=== PATIENT | male | born 1950 | race African-American/Black ===

== ENCOUNTER 2022-01-26 10:45 | Inpatient (IN) | payer OTHER ==
[2022-01-26 11:34] VITALS: BMI 34.0
[2022-01-26] MEDS ORDERED: MAGNESIUM HYDROX 2400MG/30ML ORAL SUSPENSION 30 ML CUP PO PRN (11:34)
[2022-01-26] MEDS ORDERED: LORazepam 1 MG TABLET PO PRN (11:34)
[2022-01-26] MEDS ORDERED: ONDANSETRON *ODT* 4 MG TABLET SL PRN (11:34)
[2022-01-26] MEDS ORDERED: LOPERAMIDE HCL 2 MG CAPSULE PO PRN (11:34)
[2022-01-26] MEDS ORDERED: MAG HYDROX/AL HYDROX/SIMETH 30 ML UNIT-DOSE CUP PO PRN (11:34)
[2022-01-26] MEDS ORDERED: NALOXONE HCL (KLOXXADO) 8 MG SPRAY NS PRN (11:34)
[2022-01-26] MEDS ORDERED: BENZOCAINE/MENTHOL (CHLORASEPTIC ) LOZENGE MM PRN (11:34)
[2022-01-26] MEDS ORDERED: BISMUTH SUBSALICYLATE 524 MG/30 ML PO PRN (11:34)
[2022-01-26] MEDS ORDERED: MAGNESIUM CITRATE 300 ML BOTTLE PO PRN (11:34)
[2022-01-26] MEDS ORDERED: ACETAMINOPHEN 325 MG TABLET (FP) PO PRN ×2 (11:34)
[2022-01-26] MEDS ORDERED: DICYCLOMINE HCL 10 MG CAPSULE PO PRN (11:34)
[2022-01-26] MEDS ORDERED: IBUPROFEN 400 MG TABLET (FP) PO PRN (11:34)
[2022-01-26] MEDS ORDERED: LORazepam 2 MG TABLET ONE (11:51)
[2022-01-26] MEDS: LORazepam 2 MG TABLET PO SCH ×4 (12:02→22:36)
[2022-01-26] MEDS: METHOCARBAMOL 500 MG TABLET PO PRN (12:42)
[2022-01-26] MEDS: hydrOXYzine PAMOATE 25 MG CAPSULE (FP) PO PRN (12:42)
[2022-01-26] MEDS: PRENATAL VITAMINS W/ FOLIC ACID TABLET (FP) PO SCH (12:52)
[2022-01-26] MEDS: NIFEdipine E.R 60 MG TABLET PO SCH (13:54)
[2022-01-26 15:35] LABS: HEMATOCRIT 42.2 % (35.4-49); HEMOGLOBIN 13.9 GM/dL (11.7-16.9); MCH 31.3 pg (25.7-33.7); MEAN PLT VOLUME 7.6 fl (7.5-11.1); PLATELET COUNT 223 10^3/uL (134-434); RBC 4.44 M/mm3 (4.00-5.60); RDW 14.6 % (11.9-15.9); WHITE BLOOD COUNT 5.5 K/mm3 (4.0-10.0)
[2022-01-26 15:41] LABS: ALBUMIN 3.4 g/dl (3.4-5.0); BLOOD UREA NITROGEN 5.9 mg/dL (7-18)
[2022-01-26 15:44] LABS: CREATININE 1.1 mg/dL (0.55-1.3)
[2022-01-26 15:46] LABS: BILIRUBIN,TOTAL 0.7 mg/dL (0.2-1); TOT PROT 7.4 g/dl (6.4-8.2)
[2022-01-26] MEDS: MELATONIN 5 MG TABLETS PO SCH (22:37)
[2022-01-26] MEDS: THIAMINE HCL 100 MG TABLET (FP) PO SCH (22:37)
[2022-01-27] MEDS: LORazepam 2 MG TABLET PO SCH ×4 (05:55→22:36)
[2022-01-27] MEDS: PRENATAL VITAMINS W/ FOLIC ACID TABLET (FP) PO SCH (10:38)
[2022-01-27] MEDS: NIFEdipine E.R 60 MG TABLET PO SCH (10:38)
[2022-01-27] MEDS: LACTULOSE 20 GM/30 ML UDC (FOR ORAL USE ONLY) PO SCH ×3 (14:13→22:35)
[2022-01-27] MEDS: THIAMINE HCL 100 MG TABLET (FP) PO SCH (22:35)
[2022-01-27] MEDS: MELATONIN 5 MG TABLETS PO SCH (22:35)
[2022-01-28] MEDS: LORazepam 1 MG TABLET PO SCH ×4 (06:00→22:09)
[2022-01-28] MEDS: PRENATAL VITAMINS W/ FOLIC ACID TABLET (FP) PO SCH (10:31)
[2022-01-28] MEDS: NIFEdipine E.R 60 MG TABLET PO SCH (10:31)
[2022-01-28] MEDS: LACTULOSE 20 GM/30 ML UDC (FOR ORAL USE ONLY) PO SCH ×4 (10:32→22:10)
[2022-01-28] MEDS: MELATONIN 5 MG TABLETS PO SCH (22:08)
[2022-01-28] MEDS: hydrOXYzine PAMOATE 25 MG CAPSULE (FP) PO PRN (22:09)
[2022-01-28] MEDS: IBUPROFEN 600 MG TABLET (FP) PO PRN (22:09)
[2022-01-28] MEDS: THIAMINE HCL 100 MG TABLET (FP) PO SCH (22:10)
[2022-01-29] MEDS ORDERED: LORazepam 0.5 MG TABLET PO PRN
[2022-01-29] MEDS: LORazepam 0.5 MG TABLET PO SCH ×4 (06:35→22:06)
[2022-01-29] MEDS: METHOCARBAMOL 500 MG TABLET PO PRN (10:10)
[2022-01-29] MEDS: LACTULOSE 20 GM/30 ML UDC (FOR ORAL USE ONLY) PO SCH ×4 (10:10→22:05)
[2022-01-29] MEDS: PRENATAL VITAMINS W/ FOLIC ACID TABLET (FP) PO SCH (10:10)
[2022-01-29] MEDS: NIFEdipine E.R 60 MG TABLET PO SCH (10:11)
[2022-01-29] MEDS ORDERED: cloNIDine HCL 0.1 MG TABLET PO PRN (10:46)
[2022-01-29] MEDS ORDERED: MELATONIN 5 MG TABLETS PO PRN (12:07)
[2022-01-29] MEDS: THIAMINE HCL 100 MG TABLET (FP) PO SCH (22:05)
[2022-01-29] MEDS: hydrOXYzine PAMOATE 25 MG CAPSULE (FP) PO PRN (22:06)
[2022-01-30] MEDS ORDERED: LORazepam 0.5 MG TABLET PO ONE (05:00)
[2022-01-30] MEDS: IBUPROFEN 600 MG TABLET (FP) PO PRN (05:57)
[2022-01-30] MEDS: PRENATAL VITAMINS W/ FOLIC ACID TABLET (FP) PO SCH (10:18)
[2022-01-30] MEDS: NIFEdipine E.R 60 MG TABLET PO SCH (10:18)
[2022-01-30] MEDS: LACTULOSE 20 GM/30 ML UDC (FOR ORAL USE ONLY) PO SCH ×2 (10:18→14:27)
[2022-01-30 11:21] VITALS: BP 126/79; PULSE 95; RESP 18; TEMP 98.1
== END 2022-01-30 13:27 | disposition home or self-care (01) | DRG 897 ==
LOC: YASAS 10:45 → Y6N 11:45
PROVIDERS: ADMIT Allergy & Immunology; ATTEND Surgery
PROC: HZ2ZZZZ Detoxification Services for Substance Abuse Treatment (ICD-10-PCS; principal; 2022-01-26)
DX: F10.230 Alcohol dependence with withdrawal, uncomplicated (principal); F14.10 Cocaine abuse, uncomplicated; F12.10 Cannabis abuse, uncomplicated; I10 Essential (primary) hypertension; R16.0 Hepatomegaly, not elsewhere classified; R79.89 Other specified abnormal findings of blood chemistry; U09.9 Post COVID-19 condition, unspecified; R26.2 Difficulty in walking, not elsewhere classified; Z86.19 Personal history of other infectious and parasitic diseases
CPT/HCPCS: 36415; 71045-TC-FY; 80053; 82140; 82962; 84450; 85027; 86593; 86780; 87811; 93005; 93010; C9803-CS; U0003; U0005

== ENCOUNTER 2022-06-22 09:53 | Inpatient (IN) | payer OTHER ==
[2022-06-22 10:04] VITALS: BMI 33.2
[2022-06-22] MEDS ORDERED: ONDANSETRON *ODT* 4 MG TABLET SL PRN (10:14)
[2022-06-22] MEDS ORDERED: LORazepam 1 MG TABLET PO PRN (10:14)
[2022-06-22] MEDS ORDERED: MAGNESIUM HYDROX 2400MG/30ML ORAL SUSPENSION 30 ML CUP PO PRN (10:14)
[2022-06-22] MEDS ORDERED: DICYCLOMINE HCL 10 MG CAPSULE PO PRN (10:14)
[2022-06-22] MEDS ORDERED: BISMUTH SUBSALICYLATE 262 MG/15 ML BTL PO PRN (10:14)
[2022-06-22] MEDS ORDERED: POLYETHYLENE GLYCOL (HEALTHYLAX) 3350 17 GM PACKET PO PRN (10:14)
[2022-06-22] MEDS ORDERED: guaiFENesin 600 MG TABLET.ER (FP) PO PRN (10:14)
[2022-06-22] MEDS ORDERED: IBUPROFEN 600 MG TABLET (FP) PO PRN (10:14)
[2022-06-22] MEDS ORDERED: IBUPROFEN 400 MG TABLET (FP) PO PRN (10:14)
[2022-06-22] MEDS ORDERED: MAG HYDROX/AL HYDROX/SIMETH 30 ML UNIT-DOSE CUP PO PRN (10:14)
[2022-06-22] MEDS ORDERED: NALOXONE HCL (KLOXXADO) 8 MG SPRAY NS PRN (10:14)
[2022-06-22] MEDS ORDERED: LOPERAMIDE HCL 2 MG CAPSULE PO PRN (10:14)
[2022-06-22] MEDS ORDERED: BENZOCAINE/MENTHOL (CHLORASEPTIC ) LOZENGE MM PRN (10:14)
[2022-06-22] MEDS ORDERED: ACETAMINOPHEN 325 MG TABLET (FP) PO PRN (10:14)
[2022-06-22] MEDS ORDERED: hydrOXYzine PAMOATE 25 MG CAPSULE (FP) PO PRN (10:14)
[2022-06-22] MEDS ORDERED: BENZONATATE 200 MG CAPSULE PO PRN (10:14)
[2022-06-22] MEDS ORDERED: NALOXONE HCL 0.4 MG/ML VIAL IM PRN (10:14)
[2022-06-22] MEDS ORDERED: METHOCARBAMOL 500 MG TABLET PO PRN (10:14)
[2022-06-22] MEDS ORDERED: LORazepam 2 MG TABLET PO ONE (10:14)
[2022-06-22] MEDS ORDERED: LORazepam 2 MG TABLET ONE (10:57)
[2022-06-22] MEDS: PRENATAL VITAMINS W/ FOLIC ACID TABLET (FP) PO SCH (11:00)
[2022-06-22] MEDS: LORazepam 2 MG TABLET PO SCH ×3 (11:05→22:50)
[2022-06-22 17:21] LABS: HEMATOCRIT 43.2 % (35.4-49); HEMOGLOBIN 14.7 GM/dL (11.7-16.9); MCH 32.2 pg (25.7-33.7); MCHC 34.1 g/dl (32.0-35.9); MEAN CELL VOLUME 94.3 fl (80-96); MEAN PLT VOLUME 7.8 fl (7.5-11.1); PLATELET COUNT 271 10^3/uL (134-434); RBC 4.59 M/mm3 (4.00-5.60); RDW 13.8 % (11.9-15.9); WHITE BLOOD COUNT 5.2 K/mm3 (4.0-10.0)
[2022-06-22 17:39] LABS: CALCIUM 8.8 mg/dL (8.5-10.1)
[2022-06-22 17:40] LABS: ALBUMIN 3.3 g/dl (3.4-5.0); BLOOD UREA NITROGEN 5.1 mg/dL (7-18)
[2022-06-22 17:43] LABS: CREATININE 0.9 mg/dL (0.55-1.3)
[2022-06-22 17:45] LABS: BILIRUBIN,TOTAL 0.8 mg/dL (0.2-1); TOT PROT 7.7 g/dl (6.4-8.2)
[2022-06-22] MEDS: MELATONIN 5 MG TABLETS PO SCH (22:50)
[2022-06-22] MEDS: THIAMINE HCL 100 MG TABLET (FP) PO SCH (22:50)
[2022-06-23] MEDS: LORazepam 2 MG TABLET PO SCH ×4 (05:33→22:28)
[2022-06-23] MEDS: PRENATAL VITAMINS W/ FOLIC ACID TABLET (FP) PO SCH (10:19)
[2022-06-23] MEDS: LACTULOSE 20 GM/30 ML UDC (FOR ORAL USE ONLY) PO SCH ×4 (10:20→22:29)
[2022-06-23] MEDS ORDERED: METOPROLOL TARTRATE 25 MG TABLET (FP) PO ONE (22:02)
[2022-06-23] MEDS: THIAMINE HCL 100 MG TABLET (FP) PO SCH (22:29)
[2022-06-23] MEDS: MELATONIN 5 MG TABLETS PO SCH (22:29)
[2022-06-24] MEDS: LORazepam 1 MG TABLET PO SCH ×4 (05:27→22:51)
[2022-06-24] MEDS: PRENATAL VITAMINS W/ FOLIC ACID TABLET (FP) PO SCH (10:20)
[2022-06-24] MEDS: LACTULOSE 20 GM/30 ML UDC (FOR ORAL USE ONLY) PO SCH ×4 (10:20→22:51)
[2022-06-24 11:21] LABS: CALCIUM 8.7 mg/dL (8.5-10.1)
[2022-06-24 11:22] LABS: ALBUMIN 2.8 g/dl (3.4-5.0); BLOOD UREA NITROGEN 5.8 mg/dL (7-18)
[2022-06-24 11:25] LABS: CREATININE 0.8 mg/dL (0.55-1.3)
[2022-06-24 11:26] LABS: TOT PROT 6.7 g/dl (6.4-8.2)
[2022-06-24 11:27] LABS: BILIRUBIN,TOTAL 0.7 mg/dL (0.2-1)
[2022-06-24] MEDS ORDERED: METOPROLOL TARTRATE 25 MG TABLET (FP) PO ONE ×2 (21:57→23:38)
[2022-06-24] MEDS: MELATONIN 5 MG TABLETS PO SCH (22:46)
[2022-06-24] MEDS: THIAMINE HCL 100 MG TABLET (FP) PO SCH (22:51)
[2022-06-25] MEDS ORDERED: LORazepam 0.5 MG TABLET PO PRN
[2022-06-25] MEDS: LORazepam 0.5 MG TABLET PO SCH ×4 (05:26→22:48)
[2022-06-25] MEDS: PRENATAL VITAMINS W/ FOLIC ACID TABLET (FP) PO SCH (10:20)
[2022-06-25] MEDS: LACTULOSE 20 GM/30 ML UDC (FOR ORAL USE ONLY) PO SCH ×4 (10:21→22:48)
[2022-06-25] MEDS: MELATONIN 5 MG TABLETS PO SCH (22:47)
[2022-06-25] MEDS: THIAMINE HCL 100 MG TABLET (FP) PO SCH (22:47)
[2022-06-26] MEDS ORDERED: LORazepam 0.5 MG TABLET PO ONE (05:00)
[2022-06-26 09:20] VITALS: BP 129/78; PULSE 105; RESP 19; TEMP 96.8
[2022-06-26] MEDS: LACTULOSE 20 GM/30 ML UDC (FOR ORAL USE ONLY) PO SCH (10:45)
[2022-06-26] MEDS: PRENATAL VITAMINS W/ FOLIC ACID TABLET (FP) PO SCH (10:45)
== END 2022-06-26 09:36 | disposition home or self-care (01) | DRG 897 ==
LOC: YASAS 09:53 → Y3N 10:41
PROVIDERS: ADMIT Allergy & Immunology; ATTEND Surgery
PROC: HZ2ZZZZ Detoxification Services for Substance Abuse Treatment (ICD-10-PCS; principal; 2022-06-22)
DX: F10.230 Alcohol dependence with withdrawal, uncomplicated (principal); F14.20 Cocaine dependence, uncomplicated; F19.280 Other psychoactive substance dependence with psychoactive substance-induced anxiety disorder; I10 Essential (primary) hypertension; R79.89 Other specified abnormal findings of blood chemistry; E66.9 Obesity, unspecified; Z68.33 Body mass index [BMI] 33.0-33.9, adult; Z87.19 Personal history of other diseases of the digestive system; Z86.19 Personal history of other infectious and parasitic diseases
CPT/HCPCS: 36415; 80053; 82140; 83036; 85027; 86593; 86780; 87811; C9803-CS; U0003; U0005

== ENCOUNTER 2023-02-12 14:24 | Inpatient (IN) | payer OTHER ==
[2023-02-12 15:26] VITALS: BMI 34.0
[2023-02-12] MEDS ORDERED: P-EPHED 60MG/TRIPROLIDI 2.5MG TABLET PO PRN (17:10)
[2023-02-12] MEDS ORDERED: MAG HYDROX/AL HYDROX/SIMETH 30 ML UNIT-DOSE CUP PO PRN (17:10)
[2023-02-12] MEDS ORDERED: ACETAMINOPHEN 325 MG TABLET (FP) PO PRN (17:10)
[2023-02-12] MEDS ORDERED: LOPERAMIDE HCL 2 MG CAPSULE PO PRN (17:10)
[2023-02-12] MEDS ORDERED: MAGNESIUM HYDROX 2400MG/30ML ORAL SUSPENSION 30 ML CUP PO PRN (17:10)
[2023-02-12] MEDS ORDERED: guaiFENesin 600 MG TABLET.ER (FP) PO PRN (17:10)
[2023-02-12] MEDS ORDERED: ONDANSETRON *ODT* 4 MG TABLET SL PRN (17:10)
[2023-02-12] MEDS ORDERED: IBUPROFEN 400 MG TABLET (FP) PO PRN (17:10)
[2023-02-12] MEDS ORDERED: POLYETHYLENE GLYCOL (HEALTHYLAX) 3350 17 GM PACKET PO PRN (17:10)
[2023-02-12] MEDS ORDERED: BISMUTH SUBSALICYLATE 524 MG/30 ML PO PRN (17:10)
[2023-02-12] MEDS ORDERED: BENZONATATE 200 MG CAPSULE PO PRN (17:10)
[2023-02-12] MEDS ORDERED: BENZOCAINE/MENTHOL (CHLORASEPTIC ) LOZENGE MM PRN (17:10)
[2023-02-12] MEDS ORDERED: diazePAM 5 MG TABLET PO PRN (17:12)
[2023-02-12] MEDS: diazePAM 5 MG TABLET PO SCH ×2 (17:41→22:14)
[2023-02-12] MEDS ORDERED: diazePAM 5 MG TABLET ONE (17:59)
[2023-02-12] MEDS: THIAMINE HCL 100 MG TABLET (FP) PO SCH (22:14)
[2023-02-12] MEDS: MELATONIN 5 MG TABLETS PO SCH (22:14)
[2023-02-13] MEDS: diazePAM 5 MG TABLET PO SCH ×4 (05:18→22:10)
[2023-02-13] MEDS: LISINOPRIL 10 MG TABLET PO SCH (10:22)
[2023-02-13] MEDS: PRENATAL VITAMINS W/ FOLIC ACID TABLET (FP) PO SCH (10:22)
[2023-02-13 10:25] LABS: CHLORIDE 103 mmol/L (98-107); POTASSIUM 3.6 mmol/L (3.5-5.1); SODIUM 136 mmol/L (136-145)
[2023-02-13 10:26] LABS: HEMATOCRIT 42.1 % (35.4-49); HEMOGLOBIN 13.7 GM/dL (11.7-16.9); MCH 31.4 pg (25.7-33.7); MCHC 32.6 g/dl (32.0-35.9); MEAN CELL VOLUME 96.3 fl (80-96); PLATELET COUNT 196 10^3/uL (134-434); RBC 4.38 M/mm3 (4.00-5.60); RDW 14.7 % (11.9-15.9); WHITE BLOOD COUNT 3.9 K/mm3 (4.0-10.0)
[2023-02-13 10:29] LABS: ALBUMIN 3.4 g/dl (3.4-5.0); ANION GAP 4 mmol/L (4-13); BLOOD UREA NITROGEN 10.2 mg/dL (7-18); CALCIUM 8.6 mg/dL (8.5-10.1); CO2 29 mmol/L (21-32); GLUCOSE,RANDOM 135 mg/dL (74-106)
[2023-02-13 10:31] LABS: SGPT/ALT 18 U/L (13-61)
[2023-02-13 10:32] LABS: CREATININE 0.9 mg/dL (0.55-1.3); SGOT/AST 19 U/L (15-37)
[2023-02-13 10:33] LABS: TOT PROT 7.2 g/dl (6.4-8.2)
[2023-02-13 10:34] LABS: ALK PHOS 73 U/L (45-117)
[2023-02-13] MEDS: MELATONIN 5 MG TABLETS PO SCH (22:10)
[2023-02-13] MEDS: THIAMINE HCL 100 MG TABLET (FP) PO SCH (22:10)
[2023-02-14] MEDS: diazePAM 5 MG TABLET PO SCH ×3 (05:20→22:03)
[2023-02-14] MEDS: LISINOPRIL 10 MG TABLET PO SCH (10:06)
[2023-02-14] MEDS: PRENATAL VITAMINS W/ FOLIC ACID TABLET (FP) PO SCH (10:06)
[2023-02-14] MEDS: THIAMINE HCL 100 MG TABLET (FP) PO SCH (22:03)
[2023-02-14] MEDS: MELATONIN 5 MG TABLETS PO SCH (22:04)
[2023-02-15] MEDS: diazePAM 5 MG TABLET PO SCH ×2 (05:20→17:09)
[2023-02-15] MEDS: LISINOPRIL 10 MG TABLET PO SCH (09:46)
[2023-02-15] MEDS: PRENATAL VITAMINS W/ FOLIC ACID TABLET (FP) PO SCH (09:46)
[2023-02-15] MEDS: THIAMINE HCL 100 MG TABLET (FP) PO SCH (22:19)
[2023-02-15] MEDS: MELATONIN 5 MG TABLETS PO SCH (22:19)
[2023-02-16] MEDS ORDERED: diazePAM 5 MG TABLET PO ONE (06:00)
[2023-02-16] MEDS: PRENATAL VITAMINS W/ FOLIC ACID TABLET (FP) PO SCH (10:02)
[2023-02-16] MEDS: LISINOPRIL 10 MG TABLET PO SCH (10:03)
[2023-02-16 13:29] VITALS: TEMP 97.3
[2023-02-16 16:54] VITALS: BP 145/89; PULSE 72; RESP 18
== END 2023-02-16 17:18 | disposition home or self-care (01) | DRG 897 ==
LOC: YASAS 14:24 → Y6N 17:27
PROVIDERS: ADMIT Allergy & Immunology; ATTEND Surgery
PROC: HZ2ZZZZ Detoxification Services for Substance Abuse Treatment (ICD-10-PCS; principal; 2023-02-12)
DX: F10.230 Alcohol dependence with withdrawal, uncomplicated (principal); F14.10 Cocaine abuse, uncomplicated; I10 Essential (primary) hypertension; E11.9 Type 2 diabetes mellitus without complications; Z79.84 Long term (current) use of oral hypoglycemic drugs; M15.9 Polyosteoarthritis, unspecified; E66.9 Obesity, unspecified; Z68.34 Body mass index [BMI] 34.0-34.9, adult; R76.11 Nonspecific reaction to tuberculin skin test without active tuberculosis; Z86.19 Personal history of other infectious and parasitic diseases
CPT/HCPCS: 36415; 71046-TC-FY; 80053; 80307; 82962; 85027; 86593; 86780; 87635; 87811

== ENCOUNTER 2023-11-19 14:07 | Inpatient (IN) | payer OTHER ==
[2023-11-19 15:30] VITALS: BMI 34.7
[2023-11-19] MEDS ORDERED: diazePAM 5 MG TABLET PO PRN (15:37)
[2023-11-19] MEDS ORDERED: guaiFENesin 600 MG TABLET.ER (FP) PO PRN (15:41)
[2023-11-19] MEDS ORDERED: MAG HYDROX/AL HYDROX/SIMETH 30 ML UNIT-DOSE CUP PO PRN (15:41)
[2023-11-19] MEDS ORDERED: BISMUTH SUBSALICYLATE 524 MG/30 ML PO PRN (15:41)
[2023-11-19] MEDS ORDERED: ACETAMINOPHEN 325 MG TABLET (FP) PO PRN (15:41)
[2023-11-19] MEDS ORDERED: MAGNESIUM HYDROX 2400MG/30ML ORAL SUSPENSION 30 ML CUP PO PRN (15:41)
[2023-11-19] MEDS ORDERED: IBUPROFEN 400 MG TABLET (FP) PO PRN (15:41)
[2023-11-19] MEDS ORDERED: ONDANSETRON *ODT* 4 MG TABLET SL PRN (15:41)
[2023-11-19] MEDS ORDERED: BENZOCAINE/MENTHOL (CHLORASEPTIC ) LOZENGE MM PRN (15:41)
[2023-11-19] MEDS ORDERED: BENZONATATE 200 MG CAPSULE PO PRN (15:41)
[2023-11-19] MEDS ORDERED: POLYETHYLENE GLYCOL (HEALTHYLAX) 3350 17 GM PACKET PO PRN (15:41)
[2023-11-19] MEDS ORDERED: diazePAM 5 MG TABLET ONE (17:01)
[2023-11-19] MEDS: diazePAM 5 MG TABLET PO SCH (17:10)
[2023-11-19] MEDS: cloNIDine HCL 0.1 MG TABLET PO ONE (21:17)
[2023-11-19] MEDS: MELATONIN 5 MG TABLETS PO SCH (22:51)
[2023-11-19] MEDS: THIAMINE 100 MG TABLET PO SCH (22:51)
[2023-11-20] MEDS: cloNIDine HCL 0.1 MG TABLET PO ONE (07:10)
[2023-11-20 09:04] LABS: HEMATOCRIT 42.9 % (35.4-49); HEMOGLOBIN 14.4 GM/dL (11.7-16.9); MCH 32.5 pg (25.7-33.7); MCHC 33.7 g/dl (32.0-35.9); MEAN CELL VOLUME 96.6 fl (80-96); MEAN PLT VOLUME 7.7 fl (7.5-11.1); PLATELET COUNT 184 10^3/uL (134-434); RBC 4.44 M/mm3 (4.00-5.60); RDW 13.8 % (11.9-15.9); WHITE BLOOD COUNT 3.6 K/mm3 (4.0-10.0)
[2023-11-20 09:05] LABS: POTASSIUM 3.5 mmol/L (3.5-5.1)
[2023-11-20 09:09] LABS: ALBUMIN 3.6 g/dl (3.4-5.0)
[2023-11-20 09:10] LABS: BLOOD UREA NITROGEN 7.5 mg/dL (7-18); CALCIUM 8.6 mg/dL (8.5-10.1)
[2023-11-20 09:14] LABS: BILIRUBIN,TOTAL 0.8 mg/dL (0.2-1); TOT PROT 7.7 g/dl (6.4-8.2)
[2023-11-20] MEDS: PRENATAL VITAMINS W/ FOLIC ACID TABLET (FP) PO SCH (10:16)
[2023-11-20] MEDS: LISINOPRIL 10 MG TABLET PO SCH (11:23)
[2023-11-21] MEDS: diazePAM 5 MG TABLET PO SCH (05:25)
[2023-11-21] MEDS: LOPERAMIDE HCL 2 MG CAPSULE PO PRN (17:51)
[2023-11-22] MEDS: diazePAM 5 MG TABLET PO SCH (05:34)
[2023-11-22 08:40] VITALS: BP 156/93; PULSE 83; RESP 18; TEMP 98.6
[2023-11-23] MEDS ORDERED: diazePAM 5 MG TABLET PO ONE (06:00)
== END 2023-11-22 10:58 | disposition home or self-care (01) | DRG 897 ==
LOC: YASAS 14:07 → Y6N 17:13
PROVIDERS: ADMIT Allergy & Immunology; ATTEND Surgery
PROC: HZ2ZZZZ Detoxification Services for Substance Abuse Treatment (ICD-10-PCS; principal; 2023-11-19)
DX: F10.230 Alcohol dependence with withdrawal, uncomplicated (principal); I10 Essential (primary) hypertension; E11.9 Type 2 diabetes mellitus without complications; M17.0 Bilateral primary osteoarthritis of knee; R26.2 Difficulty in walking, not elsewhere classified; Z99.89 Dependence on other enabling machines and devices; Z86.19 Personal history of other infectious and parasitic diseases; Z86.11 Personal history of tuberculosis; Z79.84 Long term (current) use of oral hypoglycemic drugs
CPT/HCPCS: 36415; 80053; 80305; 80307; 82962; 85027; 86593; 86780

== ENCOUNTER 2024-04-13 17:33 | Inpatient (IN) | payer OTHER ==
[2024-04-13 18:26] VITALS: BMI 34.9
[2024-04-13] MEDS ORDERED: diazePAM 5 MG TABLET PO PRN (19:28)
[2024-04-13] MEDS ORDERED: BISMUTH SUBSALICYLATE 524 MG/30 ML PO PRN (19:33)
[2024-04-13] MEDS ORDERED: ONDANSETRON *ODT* 4 MG TABLET SL PRN (19:33)
[2024-04-13] MEDS ORDERED: MAG HYDROX/AL HYDROX/SIMETH 30 ML UNIT-DOSE CUP PO PRN (19:33)
[2024-04-13] MEDS ORDERED: BENZONATATE 200 MG CAPSULE PO PRN (19:33)
[2024-04-13] MEDS ORDERED: MAGNESIUM HYDROX 2400MG/30ML ORAL SUSPENSION 30 ML CUP PO PRN (19:33)
[2024-04-13] MEDS ORDERED: POLYETHYLENE GLYCOL (HEALTHYLAX) 3350 17 GM PACKET PO PRN (19:33)
[2024-04-13] MEDS ORDERED: LOPERAMIDE HCL 2 MG CAPSULE PO PRN (19:33)
[2024-04-13] MEDS ORDERED: IBUPROFEN 400 MG TABLET (FP) PO PRN (19:33)
[2024-04-13] MEDS ORDERED: guaiFENesin 600 MG TABLET.ER (FP) PO PRN (19:33)
[2024-04-13] MEDS ORDERED: BENZOCAINE/MENTHOL (CHLORASEPTIC ) LOZENGE MM PRN (19:33)
[2024-04-13] MEDS ORDERED: ACETAMINOPHEN 325 MG TABLET (FP) PO PRN (19:33)
[2024-04-13] MEDS ORDERED: MELATONIN 5 MG TABLETS ONE (21:19)
[2024-04-13] MEDS ORDERED: LISINOPRIL 10 MG TABLET ONE (21:19)
[2024-04-13] MEDS: LISINOPRIL 10 MG TABLET PO SCH (21:31)
[2024-04-13] MEDS: THIAMINE 100 MG TABLET PO SCH (21:41)
[2024-04-13] MEDS: diazePAM 5 MG TABLET PO SCH (23:15)
[2024-04-14 10:05] LABS: HEMATOCRIT 38.5 % (35.4-49); HEMOGLOBIN 12.5 GM/dL (11.7-16.9); MCH 31.8 pg (25.7-33.7); MCHC 32.6 g/dl (32.0-35.9); MEAN CELL VOLUME 97.6 fl (80-96); PLATELET COUNT 265 10^3/uL (134-434); RBC 3.94 M/mm3 (4.00-5.60); RDW 13.6 % (11.9-15.9); WHITE BLOOD COUNT 5.6 K/mm3 (4.0-10.0)
[2024-04-14] MEDS: PRENATAL VITAMINS W/ FOLIC ACID TABLET (FP) PO SCH (10:21)
[2024-04-14] MEDS: hydrOXYzine PAMOATE 25 MG CAPSULE (FP) PO PRN (10:21)
[2024-04-14 12:48] LABS: CHLORIDE 107 mmol/L (98-107); POTASSIUM 3.7 mmol/L (3.5-5.1); SODIUM 139 mmol/L (136-145)
[2024-04-14 13:06] LABS: ANION GAP 8 mmol/L (4-13); CO2 25 mmol/L (21-32); GLUCOSE,RANDOM 123 mg/dL (74-106); SGOT/AST 14 U/L (15-37)
[2024-04-14 13:08] LABS: BILIRUBIN,TOTAL 0.4 mg/dL (0.2-1); BLOOD UREA NITROGEN 12.4 mg/dL (7-18)
[2024-04-14 13:09] LABS: ALK PHOS 82 U/L (45-117)
[2024-04-14 13:10] LABS: SGPT/ALT 16 U/L (13-61)
[2024-04-14 13:12] LABS: TOT PROT 6.4 g/dl (6.4-8.2)
[2024-04-14] MEDS: MELATONIN 5 MG TABLETS PO PRN (22:16)
[2024-04-15] MEDS: diazePAM 5 MG TABLET PO SCH (05:45)
[2024-04-16] MEDS: diazePAM 5 MG TABLET PO SCH (05:52)
[2024-04-17] MEDS: diazePAM 5 MG TABLET PO ONE (05:38)
[2024-04-17] MEDS: NALOXONE (NYS OPIOID OVERDOSE PROGRAM) 4 MG/0.1 ML SPRAY NS SCH ×2 (09:00→14:25)
[2024-04-17] MEDS: IBUPROFEN 600 MG TABLET (FP) PO PRN (21:06)
[2024-04-24 06:39] VITALS: RESP 18
[2024-04-25 06:32] VITALS: TEMP 98
[2024-04-25] MEDS: NALOXONE (NYS OPIOID OVERDOSE PROGRAM) 4 MG/0.1 ML SPRAY NS PRN (09:21)
[2024-04-25 10:11] VITALS: BP 148/90; PULSE 74
== END 2024-04-25 10:52 | disposition home or self-care (01) | DRG 895 ==
LOC: YASAS 17:33 → Y3N 21:24 → Y5N 04-17 15:43
PROVIDERS: ADMIT Psychiatry & Neurology Pain Medicine; ATTEND Psychiatry & Neurology Pain Medicine
PROC: HZ42ZZZ Group Counseling for Substance Abuse Treatment, Cognitive-Behavioral (ICD-10-PCS; principal; 2024-04-13)
DX: F10.20 Alcohol dependence, uncomplicated (principal); F14.20 Cocaine dependence, uncomplicated; F19.282 Other psychoactive substance dependence with psychoactive substance-induced sleep disorder; F19.24 Other psychoactive substance dependence with psychoactive substance-induced mood disorder; F41.9 Anxiety disorder, unspecified; I10 Essential (primary) hypertension; E11.9 Type 2 diabetes mellitus without complications; Z79.84 Long term (current) use of oral hypoglycemic drugs; M17.0 Bilateral primary osteoarthritis of knee; Z86.19 Personal history of other infectious and parasitic diseases; Z91.81 History of falling; Z99.89 Dependence on other enabling machines and devices
CPT/HCPCS: 36415; 80053; 80305; 80307; 82962; 85027

== ENCOUNTER 2024-09-04 11:06 | Inpatient (IN) | payer OTHER ==
[2024-09-04 11:25] VITALS: BMI 34.0
[2024-09-04] MEDS ORDERED: LOPERAMIDE HCL 2 MG CAPSULE PO PRN (11:33)
[2024-09-04] MEDS ORDERED: BENZONATATE 200 MG CAPSULE PO PRN (11:33)
[2024-09-04] MEDS ORDERED: POLYETHYLENE GLYCOL (HEALTHYLAX) 3350 17 GM PACKET PO PRN (11:33)
[2024-09-04] MEDS ORDERED: ACETAMINOPHEN 325 MG TABLET (FP) PO PRN (11:33)
[2024-09-04] MEDS ORDERED: BENZOCAINE/MENTHOL (CHLORASEPTIC ) LOZENGE MM PRN (11:33)
[2024-09-04] MEDS ORDERED: ONDANSETRON *ODT* 4 MG TABLET SL PRN (11:33)
[2024-09-04] MEDS ORDERED: MAGNESIUM HYDROX 2400MG/30ML ORAL SUSPENSION 30 ML CUP PO PRN (11:33)
[2024-09-04] MEDS ORDERED: NALOXONE (NARCAN) HCL 4 MG/0.1 ML SPRAY NS PRN (11:33)
[2024-09-04] MEDS ORDERED: IBUPROFEN 400 MG TABLET (FP) PO PRN (11:33)
[2024-09-04] MEDS ORDERED: BISMUTH SUBSALICYLATE 262 MG/15 ML BTL PO PRN (11:33)
[2024-09-04] MEDS ORDERED: IBUPROFEN 600 MG TABLET (FP) PO PRN (11:33)
[2024-09-04] MEDS ORDERED: guaiFENesin 600 MG TABLET.ER (FP) PO PRN (11:33)
[2024-09-04] MEDS ORDERED: MAG HYDROX/AL HYDROX/SIMETH 30 ML UNIT-DOSE CUP PO PRN (11:33)
[2024-09-04] MEDS ORDERED: diazePAM 5 MG TABLET PO PRN (11:35)
[2024-09-04] MEDS ORDERED: METOPROLOL TARTRATE 25 MG TABLET (FP) ONE ×2 (12:19→12:21)
[2024-09-04] MEDS: METOPROLOL TARTRATE 50 MG TABLET (FP) PO ONE (12:21)
[2024-09-04] MEDS: diazePAM 5 MG TABLET PO SCH ×2 (12:55→13:50)
[2024-09-04] MEDS: MELATONIN 5 MG TABLETS PO SCH (22:16)
[2024-09-04] MEDS: THIAMINE 100 MG TABLET PO SCH (22:16)
[2024-09-05] MEDS: PRENATAL VITAMINS W/ FOLIC ACID TABLET (FP) PO SCH (10:17)
[2024-09-05] MEDS: amLODIPine BESYLATE 10 MG TABLET (FP) PO SCH (10:17)
[2024-09-05] MEDS: LISINOPRIL 10 MG TABLET PO SCH (10:17)
[2024-09-05 11:39] LABS: HEMATOCRIT 38.3 % (40.1-51.0); HEMOGLOBIN 12.7 g/dL (13.7-17.5); MCHC 33.2 g/dl (32.3-36.5); MEAN CELL VOLUME 95.3 fl (79.0-92.2); MEAN PLT VOLUME 10.1 fl (9.4-12.4); PLATELET COUNT 216 x10^3/uL (163-337); RDW 13.1 % (12.2-16.6)
[2024-09-05 11:42] LABS: POTASSIUM 3.6 mmol/L (3.5-5.1)
[2024-09-05 11:51] LABS: ALBUMIN 3.7 g/dl (3.4-5.0); BLOOD UREA NITROGEN 11.4 mg/dL (7-18); CALCIUM 9.8 mg/dL (8.5-10.1); CREATININE 1.1 mg/dL (0.55-1.3)
[2024-09-05 11:53] LABS: BILIRUBIN,TOTAL 0.6 mg/dL (0.2-1); TOT PROT 7.6 g/dl (6.4-8.2)
[2024-09-05] MEDS: LISINOPRIL 10 MG TABLET PO ONE (22:13)
[2024-09-05] MEDS: ASPIRIN COATED 81 MG TABLET.EC PO ONE (22:13)
[2024-09-06] MEDS: diazePAM 5 MG TABLET PO SCH (05:24)
[2024-09-07] MEDS: diazePAM 5 MG TABLET PO SCH (05:28)
[2024-09-08] MEDS ORDERED: INSULIN ASPART SLIDING SCALE (NOVOLOG) 1 VIAL SQ ONE (04:52)
[2024-09-08] MEDS: diazePAM 5 MG TABLET PO ONE (06:08)
[2024-09-14] MEDS ORDERED: hydrOXYzine PAMOATE 25 MG CAPSULE (FP) PO PRN (16:09)
[2024-09-17] MEDS: SALICYLIC ACID (WART REMOVER) 9 ML LIQUID TP SCH (15:23)
[2024-09-18] MEDS: GABAPENTIN 100 MG CAPSULE PO SCH (14:04)
[2024-09-18] MEDS: risperiDONE 0.5 MG TABLET PO SCH (21:18)
[2024-09-22 05:20] VITALS: RESP 16
[2024-09-24 06:05] VITALS: TEMP 97.3
[2024-09-25 09:30] VITALS: BP 118/73; PULSE 102
== END 2024-09-25 10:02 | disposition home or self-care (01) | DRG 895 ==
LOC: YASAS 11:06 → Y3N 12:15 → Y3NR 09-08 15:19 → Y3W 09-09 10:16
PROVIDERS: ADMIT Allergy & Immunology; ATTEND Psychiatry & Neurology Pain Medicine
PROC: HZ42ZZZ Group Counseling for Substance Abuse Treatment, Cognitive-Behavioral (ICD-10-PCS; principal; 2024-09-04)
DX: F10.20 Alcohol dependence, uncomplicated (principal); F41.9 Anxiety disorder, unspecified; I10 Essential (primary) hypertension; E11.9 Type 2 diabetes mellitus without complications; Z79.84 Long term (current) use of oral hypoglycemic drugs; M17.0 Bilateral primary osteoarthritis of knee; R26.89 Other abnormalities of gait and mobility; Z99.89 Dependence on other enabling machines and devices
CPT/HCPCS: 36415; 80053; 80305; 80307; 82962; 85027; 86593; 86780; 87811